=== PATIENT | female | born 1965 | race Caucasian/White ===

== ENCOUNTER 2017-03-23 02:55 | Inpatient (IN) | payer BC, OTHER ==
[2017-03-23 03:15] VITALS: BP 127/76
[2017-03-23] MEDS: LACTATED RINGERS 1,000 ML IV SCH ×3 (03:45→19:54)
[2017-03-23] MEDS: ONDANSETRON 4 MG/2 ML (SDV) Z0FRAN IVP PRN ×3 (03:46→17:42)
[2017-03-23] MEDS: fentaNYL INJECTION 100 MCG/2 ML AMP IVP PRN ×6 (03:46→21:52)
[2017-03-23 06:46] LABS: BASOPHILS % (AUTO) 0 % (0-10); EOSINOPHILS # (AUTO) 0.5 10^3/uL (0.0-0.3); EOSINOPHILS % (AUTO) 4 % (0-10); LYMPHOCYTES # (AUTO) 5.4 X 10^3 (1.0-4.0); LYMPHOCYTES % (AUTO) 35 % (12-44); MEAN CORPUSCULAR HEMOGLOBIN 27 PG (25-34); MEAN CORPUSCULAR HGB CONC 32 G/DL (32-36); MEAN CORPUSCULAR VOLUME 84 FL (80-99); MEAN PLATELET VOLUME 9.1 FL (7.4-10.4); MONOCYTES % (AUTO) 6 % (0-12); NEUTROPHILS # (AUTO) 8.4 X 10^3 (1.8-7.8); NEUTROPHILS % (AUTO) 55 % (42-75); PLATELET COUNT 302 10^3/uL (130-400); RED BLOOD COUNT 5.41 10^6/uL (4.35-5.85); WHITE BLOOD COUNT 15.3 10^3/uL (4.3-11.0)
[2017-03-23 07:06] LABS: ALANINE AMINOTRANSFERASE 24 U/L (0-55); ALBUMIN 3.4 GM/DL (3.2-4.5); ANION GAP 9 MMOL/L (5-14); ASPARTATE AMINO TRANSFERASE 13 U/L (5-34); BILIRUBIN,TOTAL 0.4 MG/DL (0.1-1.0); BLOOD UREA NITROGEN 11 MG/DL (7-18); BUN/CREATININE RATIO 16; CALCIUM 8.4 MG/DL (8.5-10.1); CARBON DIOXIDE 22 MMOL/L (21-32); CHLORIDE 109 MMOL/L (98-107); GFR ESTIMATED > 60; GLUCOSE 134 MG/DL (70-105); POTASSIUM 4.1 MMOL/L (3.6-5.0); SODIUM 140 MMOL/L (135-145); TOTAL PROTEIN 6.3 GM/DL (6.4-8.2)
[2017-03-23 07:25] LABS: ANISOCYTOSIS SLIGHT; BAND NEUTROPHILS 2 %; BASOPHILS % (MANUAL) 0 %; EOSINOPHILS % (MANUAL) 3 %; LYMPHOCYTES % (MANUAL) 37 %; NEUTROPHILS % (MANUAL) 53 %
[2017-03-23 08:00] VITALS: BP 113/67
--- NOTE | 2017-03-23 08:01 | History & Physicial ---
History of Present Illness History of Present Illness Reason for visit/HPI Increasing diarrhea, epigastric pain with abnormal thickening of the terminal ileum on a CT scan. This lady underwent laparoscopic cholecystectomy to address gallstones by Dr. Feng about 3 weeks ago. She reports severe diarrhea with epigastric pain, resulting in ER visit at [facility]. White cell count was slightly elevated. LFTs were normal. Thickening of the terminal ileum was reported on a CT scan obtained at [place] [facility]. At the patient's request, she has been transferred to our facility for continuity of care. Date of Admission Mar 23, 2017 at 2:55 am Date Seen by Provider: Mar 23, 2017 Time Seen by Provider: 07:20 I consulted on this patient on 03/23/17 07:55 Attending Physician Yvonne Alexander MD Admitting Physician Mitchell Hair DO Consult Allergies and Home Medications Allergies Coded Allergies: Penicillins (Verified Allergy, Unknown, 03/23/17) Sulfa (Sulfonamide Antibiotics) (Verified Allergy, Unknown, 03/23/17) erythromycin base (Verified Allergy, Unknown, 03/23/17) iodine (Verified Allergy, Unknown, 03/23/17) meperidine (Verified Allergy, Unknown, 03/23/17) Past Yckfqne-Icctoa-Fuhckl Hx Patient Social History Marrital Status: Employed/Student: employed Alcohol Use: Occasionally Uses Recreational Drug Use: No Smoking Status: Current Everyday Smoker Type Used: Cigarettes Physical Abuse Screen: No Sexual Abuse: No Recent Foreign Travel: No Contact w/other who traveled: No Seasonal Allergies Seasonal Allergies: No Surgeries Surgeries: Gallbladder Cardiovascular Hx Cardiovascular Disorders: No Neurological Hx Neurological Disorders: No Genitourinary Genitourinary Disorders: Kidney Stones, UTI-Chronic Gastrointestinal Hx Gastrointestinal Disorders: Yes Gastrointestinal Disorders: Chronic Diarrhea, Gall Bladder Disease Musculoskeletal Hx Musculoskeletal Disorders: No Endocrine Hx Endocrine Disorders: Yes Endocrine Disorders: Diabetes, Non-Insulin dep HEENT HX ENT Disorders: No Psychosocial Hx Psychiatric Problems: No Integumentary HX Skin/Integumentary Disorder: Yes Skin/Integumentary Disorders: Pruritis Blood Transfusions Adverse Reaction to a Blood Tr: No Constitutional: malaise, weakness EENTM: no symptoms reported Respiratory: no symptoms reported Cardiovascular: no symptoms reported Gastrointestinal: abdominal pain (RUQ), diarrhea Genitourinary: no symptoms reported : No Musculoskeletal: no symptoms reported Skin: pruritus Psychiatric/Neurological: No Symptoms Reported Physical Exam Vital Signs Vital Sign - Last 12Hours 03/23/17 03:15 Temp 98.2 Pulse 71 Resp 20 B/P (MAP) 127/76 Pulse Ox 96 O2 Delivery Room Air Capillary Refill : General Appearance: Anxious HEENT: Normal ENT Inspection Neck: Normal Inspection Respiratory: Lungs Clear Cardiovascular: Regular Rate, Rhythm Gastrointestinal: Tenderness Rectal: Deferred Extremity: Normal Inspection Neurologic/Psychiatric: Alert, Oriented x3 Skin: Rash Comments mild epigastric tenderness. Multiple rashes all over her body, precipitated by intense pruritus. Assessment/Plan Assessment and Plan Lady with postcholecystectomy diarrhea. Abnormal thickening of the terminal ileum on CT scan epigastric tenderness and nausea. Possibly gastritis. Initiated symptomatically management. Requested her primary surgeon to assume care and he has agreed. Problems: Clinical Quality Measures DVT/VTE Risk/Contraindication: Risk Factor Score Per Nursin RFS Level Per Nursing on Admit: 2=Moderate YVONNE ALEXANDER MD Mar 23, 2017 8:01 am
[2017-03-23] MEDS ORDERED: METH4TAB10 PO (08:08)
[2017-03-23] MEDS ORDERED: TR1C15 TOP (08:08)
[2017-03-23] MEDS ORDERED: CARI350T27 PO (08:08)
[2017-03-23] MEDS ORDERED: DOXE25CA46 PO (08:08)
[2017-03-23] MEDS ORDERED: LINA5TAB PO (08:08)
[2017-03-23] MEDS ORDERED: ALPR1TAB7 PO (08:08)
[2017-03-23] MEDS ORDERED: PRM50SU RC (08:08)
[2017-03-23] MEDS: diphenhydrAMINE 50 MG/ML INJ (BENADRYL) IVP PRN ×2 (08:23→21:52)
[2017-03-23] MEDS: PANTOPRAZOLE 40 MG/10 ML (PROTONIX) VIAL IV SCH (08:23)
[2017-03-23] MEDS: inSUlin (REGULAR) HUMAN 1 UNIT/0.01 ML (CHARGE PER UNIT) SC SCH ×3 (11:35→20:58)
[2017-03-23 12:00] VITALS: BP 97/61
--- NOTE | 2017-03-23 13:36 | Progress Note ---
Subjective Time Seen by Provider: 13:01 Subjective/Events-last exam Pt was doing ok after her surgery for appx 2 weeks, then started developing "hives". She was placed on medrol dose pack and her DM medication was stopped. Then suddenly on Wednesday developed midsternal pain, with nausea and vomiting. This got so bad that she went to the ER in [place]. CT done there showed thickened TI and labs showed elevated WBC and elevated lactic acid. Right now pt states she has no pain, but thinks it is because the Zofran took the pain away. She is hungry, which is an improvement because she couldn't eat before. She stated even with liquids it would cause the "burning" in midsternal area. Review of Systems General: No Chills, Night Sweats, Fatigue HEENT: Head Aches, No Sore Throat Pulmonary: No Dyspnea, No Cough Cardiovascular: No: Chest Pain, Palpitations Gastrointestinal: Abdominal Pain, Nausea, Vomiting Genitourinary: No Dysuria, No Frequency Objective Exam Vital Signs Date Time Temp Pulse Resp B/P (MAP) Pulse Ox O2 Delivery O2 Flow Rate FiO2 03/23/17 08:00 97.6 67 16 113/67 97 Room Air 03/23/17 04:54 97 Room Air 03/23/17 03:15 98.2 71 20 127/76 96 Room Air I & O 03/23/17 07:00 Output Total 75 ml Balance -75 ml Capillary Refill : General Appearance: WD/WN, Anxious HEENT: PERRL/EOMI, Pharynx Normal Neck: Normal Inspection Respiratory: Lungs Clear, No Accessory Muscle Use Cardiovascular: Regular Rate, Rhythm, No Murmur Gastrointestinal: no organomegaly, No distended, tenderness (mostly RLQ ), other (incisions are clean dry and intact) Extremity: Normal Inspection Neurologic/Psychiatric: Alert, Oriented x3 Skin: Rash Results Lab Laboratory Tests 03/23/17 06:35: White Blood Count 15.3H, Red Blood Count 5.41, Hemoglobin 14.4, Hematocrit 45, Mean Corpuscular Volume 84, Mean Corpuscular Hemoglobin 27, Mean Corpuscular Hemoglobin Concent 32, Red Cell Distribution Width 15.0H, Platelet Count 302, Mean Platelet Volume 9.1, Neutrophils (%) (Auto) 55, Lymphocytes (%) (Auto) 35, Monocytes (%) (Auto) 6, Eosinophils (%) (Auto) 4, Basophils (%) (Auto) 0, Neutrophils # (Auto) 8.4H, Lymphocytes # (Auto) 5.4H, Monocytes # (Auto) 1.0, Eosinophils # (Auto) 0.5H, Basophils # (Auto) 0.0, Neutrophils % (Manual) 53, Lymphocytes % (Manual) 37, Monocytes % (Manual) 5, Eosinophils % (Manual) 3, Basophils % (Manual) 0, Band Neutrophils 2, Anisocytosis SLIGHT, Sodium Level 140, Potassium Level 4.1, Chloride Level 109H, Carbon Dioxide Level 22, Anion Gap 9, Blood Urea Nitrogen 11, Creatinine 0.70, Estimat Glomerular Filtration Rate > 60, BUN/Creatinine Ratio 16, Glucose Level 134H, Calcium Level 8.4L, Total Bilirubin 0.4, Aspartate Amino Transf (AST/SGOT) 13, Alanine Aminotransferase (ALT/SGPT) 24, Alkaline Phosphatase 95, Total Protein 6.3L, Albumin 3.4 03/23/17 11:24: Glucometer 128H Assessment/Plan Assessment/Plan Assessment/Plan 1. Thickened TI on CT; probably a gastroenteritis, not due to her recent cholecystectomy. Will try clear liquids and crackers 2. Elevated WBC - unsure etiology, ?reactive from vomiting and pain, iram labs in am 3. Elevated lactic acid - will repeat labs, most likely elevated secondary to metformin, no report from radiologist about bowel 4. Pruritis with erythema and welts after itching, Consult Medicine for help regarding this. Pt on Benadryl and steroids Clinical Quality Measures DVT/VTE Risk/Contraindication: Risk Factor Score Per Nursin RFS Level Per Nursing on Admit: 2=Moderate ELIZABETH HOUSE DO Mar 23, 2017 13:36
[2017-03-23] MEDS ORDERED: hydrOXYzine (VISTARIL) 25 MG CAP PO PRN (13:45)
[2017-03-23] MEDS ORDERED: SCOPOLAMINE 1.5 MG (TRANSDERM-SCOP) PATCH TOP SCH (13:45)
[2017-03-23] MEDS: methylPREDNISolone 40 MG/ML (Solu-MEDROL) VIAL IV SCH ×2 (14:14→19:54)
[2017-03-23 15:53] VITALS: BP 113/69
[2017-03-23 19:07] VITALS: BP 99/63
[2017-03-23 23:55] VITALS: BP 100/57
[2017-03-24] MEDS: ONDANSETRON 4 MG/2 ML (SDV) Z0FRAN IVP PRN (00:23)
[2017-03-24] MEDS: fentaNYL INJECTION 100 MCG/2 ML AMP IVP PRN (00:26)
[2017-03-24] MEDS: methylPREDNISolone 40 MG/ML (Solu-MEDROL) VIAL IV SCH ×2 (01:59→09:08)
[2017-03-24] MEDS: LACTATED RINGERS 1,000 ML IV SCH (04:30)
[2017-03-24 05:27] LABS: BASOPHILS % (AUTO) 0 % (0-10); EOSINOPHILS % (AUTO) 0 % (0-10); LYMPHOCYTES # (AUTO) 1.5 X 10^3 (1.0-4.0); LYMPHOCYTES % (AUTO) 14 % (12-44); MEAN CORPUSCULAR HEMOGLOBIN 26 PG (25-34); MEAN CORPUSCULAR HGB CONC 32 G/DL (32-36); MEAN CORPUSCULAR VOLUME 84 FL (80-99); MEAN PLATELET VOLUME 9.8 FL (7.4-10.4); MONOCYTES # (AUTO) 0.3 X 10^3 (0.0-1.0); MONOCYTES % (AUTO) 2 % (0-12); NEUTROPHILS # (AUTO) 8.8 X 10^3 (1.8-7.8); NEUTROPHILS % (AUTO) 84 % (42-75); PLATELET COUNT 327 10^3/uL (130-400); RED BLOOD COUNT 5.41 10^6/uL (4.35-5.85); RED CELL DISTRIBUTION WIDTH 14.6 % (10.0-14.5); WHITE BLOOD COUNT 10.5 10^3/uL (4.3-11.0)
[2017-03-24] MEDS: inSUlin (REGULAR) HUMAN 1 UNIT/0.01 ML (CHARGE PER UNIT) SC SCH ×2 (05:31→11:33)
[2017-03-24 05:45] LABS: ALANINE AMINOTRANSFERASE 24 U/L (0-55); ALBUMIN 3.7 GM/DL (3.2-4.5); ANION GAP 12 MMOL/L (5-14); ASPARTATE AMINO TRANSFERASE 12 U/L (5-34); BILIRUBIN,TOTAL 0.3 MG/DL (0.1-1.0); BLOOD UREA NITROGEN 10 MG/DL (7-18); BUN/CREATININE RATIO 13; CALCIUM 9.1 MG/DL (8.5-10.1); CARBON DIOXIDE 23 MMOL/L (21-32); CHLORIDE 104 MMOL/L (98-107); CREATININE SERUM 0.77 MG/DL (0.60-1.30); GFR ESTIMATED > 60; GLUCOSE 209 MG/DL (70-105); POTASSIUM 4.1 MMOL/L (3.6-5.0); SODIUM 139 MMOL/L (135-145); TOTAL PROTEIN 6.9 GM/DL (6.4-8.2)
[2017-03-24 08:00] VITALS: BP 103/59
[2017-03-24] MEDS: PANTOPRAZOLE 40 MG/10 ML (PROTONIX) VIAL IV SCH (09:08)
[2017-03-24] MEDS ORDERED: glyBURIDE 2.5 MG (MICRONASE) TAB PO SCH (10:30)
--- NOTE | 2017-03-24 10:33 | Consultation-Hospitalist ---
HPI History of Present Illness: HPI/Chief Complaint CC: Hives, severe pain, and diarrhea HPI: This is a 52 [address] Hair who had Cholecystectomy on February 26, performed by Dr. Feng. Three weeks after surgery, pt experienced hives and received steroids from Dr. Hair in office last week. Pt checked into the ER for severe pain and diarrhea on Wednesday. nurses aide: Pt's daughter wheels her out to smoke even though she is told no to Have not seen Dr. Feng Medical Student Review: Pt confirms recent Cholecystectomy Pt states that her pain is okay. Fentanyl was stopped around 0100. Pt rates her pain at 2 Pt states that her hives have mostly cleared Pt denies nausea and vomiting Pt states that she is on a clear liquid diet but would like to advance Pt confirms still having some diarrhea Pt confirms smoking Pt has DM Patient Interview: Pt confirms gallbladder removal on February [address] Feng Pt states that the hives started about 3 weeks after surgery. Pt went to Dr. Leger office for them and was given steroids and Doxepin and taken off DM meds. On Wednesday pt became sick with pain and diarrhea. Pt went to ER and was started on Zofran and Fentanyl. Pt states that her lactic acid was at 3 so could not DC and was transferred here. IV steroids were discussed and this has helped Physical exam stable. Labs discussed. WBC normal, but sugars are high because of the meds she is on Pt denies seeing Dr. Feng today Steroids will be given upon DC to help to not have recurren or fdc hives. Pt states that she has had a family member and was wondering if stress caused the hivess Pt denies being insulin dependent Scribed by Kaelyn Gordon under the direct supervision of Dr. Schneider. Source: patient Date Seen 03/24/17 Attending Physician Jose Garcia MD PCP Mitchell Hair DO Referring Physician Date of Admission Mar 23, 2017 at 02:55 Home Medications & Allergies Home Medications Reviewed patient Home Medication Reconciliation Form Allergies Allergies Coded Allergies Penicillins (Verified Allergy, Unknown, 03/23/17) Sulfa (Sulfonamide Antibiotics) (Verified Allergy, Unknown, 03/23/17) erythromycin base (Verified Allergy, Unknown, 03/23/17) iodine (Verified Allergy, Unknown, 03/23/17) meperidine (Verified Allergy, Unknown, 03/23/17) Past Vrsiwme-Cfsxol-Pokmfo Hx Patient Social History Marrital Status: Employed/Student: employed Alcohol Use: Occasionally Uses Recreational Drug Use: No Smoking Status: Current Everyday Smoker Type Used: Cigarettes Physical Abuse Screen: No Sexual Abuse: No Recent Foreign Travel: No Contact w/other who traveled: No Seasonal Allergies Seasonal Allergies: No Surgeries HX Surgeries: Yes Surgeries: Gallbladder Respiratory Hx Respiratory Disorders: No Cardiovascular Hx Cardiovascular Disorders: No Neurological Hx Neurological Disorders: No Genitourinary Hx Genitourinary Disorders: Yes Genitourinary Disorders: Kidney Stones, UTI-Chronic Gastrointestinal Hx Gastrointestinal Disorders: Yes Gastrointestinal Disorders: Chronic Diarrhea, Gall Bladder Disease Musculoskeletal Hx Musculoskeletal Disorders: No Endocrine Hx Endocrine Disorders: Yes Endocrine Disorders: Diabetes, Non-Insulin dep HEENT HX ENT Disorders: No Psychosocial Hx Psychiatric Problems: No Integumentary HX Skin/Integumentary Disorder: Yes Skin/Integumentary Disorders: Pruritis Blood Transfusions Adverse Reaction to a Blood Tr: No Review of Systems Constitutional: see HPI, weakness EENTM: no symptoms reported Respiratory: no symptoms reported Cardiovascular: no symptoms reported Gastrointestinal: abdominal pain (LLQ), loss of appetite, nausea, vomiting Genitourinary: no symptoms reported Musculoskeletal: no symptoms reported Skin: see HPI, rash Psychiatric/Neurological: No Symptoms Reported All Other Systems Reviewed Negative Unless Noted: Yes Physical Exam Physical Exam Vital Signs Vital Sign - Last 12Hours 03/23/17 03:15 Temp 98.2 Pulse 71 Resp 20 B/P (MAP) 127/76 Pulse Ox 96 O2 Delivery Room Air Capillary Refill : General Appearance: No Apparent Distress, WD/WN Eyes: Bilateral Eye Normal Inspection, Bilateral Eye PERRL HEENT: PERRL/EOMI, Normal ENT Inspection, Pharynx Normal Neck: Full Range of Motion, Normal Inspection, Non Tender, Supple, Carotid Bruit Respiratory: Chest Non Tender, Lungs Clear, Normal Breath Sounds, No Accessory Muscle Use, No Respiratory Distress Cardiovascular: Regular Rate, Rhythm, No Edema, No Gallop, No JVD, No Murmur, Normal Peripheral Pulses Gastrointestinal: Normal Bowel Sounds, No Organomegaly, No Pulsatile Mass, Non Tender, Soft Back: Normal Inspection, No CVA Tenderness, No Vertebral Tenderness Extremity: Normal Capillary Refill, Normal Inspection, Normal Range of Motion, Non Tender, No Calf Tenderness, No Pedal Edema Neurologic/Psychiatric: Alert, Oriented x3, No Motor/Sensory Deficits, Normal Mood/Affect Skin: Normal Color, Warm/Dry, Rash (resolved urticaria) Lymphatic: No Adenopathy Results Results/Procedures Lab Laboratory Tests 03/23/17 06:35 03/24/17 04:54 Assessment/Plan Admission Diagnosis Assessment: Severe gastroenteritis causing severe dehydration with recurrent nausea and vomiting requiring IV fluids, antibiotics and scopolamine patch Severe and recurrent urticaria unresolved with steroid administration as outpatient from unknown source likely medication related Smoker Diabetes mellitus Assessment and Plan Plan: Confer with Dr. Feng Follow up with Dr. Hair Continue clear liquids until discussed with Dr. Fegn Reconcile home meds start OHA low dose to avoid insulin at DC but accommodate the high sugars from steroids at DC Zev Phillips. Clinical Quality Measures DVT/VTE Risk/Contraindication: Risk Factor Score Per Nursin RFS Level Per Nursing on Admit: 2=Moderate SHUKRI SCHNEIDER DO Mar 24, 2017 10:33
[2017-03-24] MEDS ORDERED: MONTELUKAST 10 MG (SINGULAIR) TAB PO SCH (10:45)
[2017-03-24] MEDS ORDERED: FAMOTIDINE 20 MG (PEPCID) TABLET PO SCH (10:45)
[2017-03-24] MEDS ORDERED: GLYB2.5T4 PO (10:50)
[2017-03-24] MEDS ORDERED: MONT10TA24 PO (10:50)
[2017-03-24] MEDS ORDERED: SCOP1PAT TOP (10:50)
[2017-03-24] MEDS ORDERED: PRED10TA22 PO (10:50)
[2017-03-24] MEDS ORDERED: FAMO20TA5 PO (10:50)
[2017-03-24] MEDS ORDERED: HYDR-3781 PO (10:50)
[2017-03-24] MEDS ORDERED: inSUlin ASPART (NovoLOG) 1 UNIT/0.01 ML (CHARGE PER UNIT) SC SCH (11:00)
--- NOTE | 2017-03-24 11:18 | Progress Note ---
Subjective Time Seen by Provider: 11:01 Subjective/Events-last exam Pt seen and examined, hungry and upset because chicken was "hard and dry". She also wants to go smoke, "haven't had nicotine in 3 days". She states pain is much better tolerating clears and crackers. She also thinks the hives/rash is better. Review of Systems General: No Chills, No Night Sweats HEENT: Head Aches, No Visual Changes Pulmonary: No Dyspnea, No Cough Cardiovascular: No: Chest Pain, Palpitations Gastrointestinal: Abdominal Pain (improved), No: Nausea, Vomiting Objective Exam Vital Signs Date Time Temp Pulse Resp B/P (MAP) Pulse Ox O2 Delivery O2 Flow Rate FiO2 03/24/17 09:20 Room Air 03/24/17 08:00 98.4 52 20 103/59 96 Room Air 03/23/17 23:55 96.0 69 20 100/57 91 Room Air 03/23/17 20:00 Room Air 03/23/17 19:07 97.3 52 16 99/63 96 03/23/17 15:53 97.2 55 14 113/69 97 03/23/17 12:00 97.7 55 20 97/61 94 Room Air I & O 03/24/17 07:00 Intake Total 4045 ml Output Total 700 ml Balance 3345 ml Capillary Refill : General Appearance: No Apparent Distress, WD/WN HEENT: PERRL/EOMI Neck: Carotid Bruit Respiratory: Chest Non Tender, Lungs Clear, Normal Breath Sounds, No Accessory Muscle Use, No Respiratory Distress Cardiovascular: Regular Rate, Rhythm, No Edema, No Gallop, No JVD, No Murmur, Normal Peripheral Pulses Gastrointestinal: no organomegaly, No distended, tenderness (mostly RLQ ), other (incisions are clean dry and intact) Extremity: Normal Capillary Refill, Normal Inspection, Normal Range of Motion, Non Tender, No Calf Tenderness, No Pedal Edema Neurologic/Psychiatric: Alert, Oriented x3, No Motor/Sensory Deficits, Normal Mood/Affect Skin: Normal Color, Warm/Dry, Rash (resolved urticaria) Results Lab Laboratory Tests 03/23/17 11:24: Glucometer 128H 03/23/17 13:45: Lactic Acid Level 1.29 03/23/17 16:16: Glucometer 174H 03/23/17 20:48: Glucometer 236H 03/24/17 04:53: Glucometer 187H 03/24/17 04:54: White Blood Count 10.5, Red Blood Count 5.41, Hemoglobin 14.3, Hematocrit 45, Mean Corpuscular Volume 84, Mean Corpuscular Hemoglobin 26, Mean Corpuscular Hemoglobin Concent 32, Red Cell Distribution Width 14.6H, Platelet Count 327, Mean Platelet Volume 9.8, Neutrophils (%) (Auto) 84H, Lymphocytes (%) (Auto) 14 , Monocytes (%) (Auto) 2, Eosinophils (%) (Auto) 0, Basophils (%) (Auto) 0, Neutrophils # (Auto) 8.8H, Lymphocytes # (Auto) 1.5, Monocytes # (Auto) 0.3, Eosinophils # (Auto) 0.0, Basophils # (Auto) 0.0, Sodium Level 139, Potassium Level 4.1, Chloride Level 104, Carbon Dioxide Level 23, Anion Gap 12, Blood Urea Nitrogen 10, Creatinine 0.77, Estimat Glomerular Filtration Rate > 60, BUN/ Creatinine Ratio 13, Glucose Level 209H, Calcium Level 9.1, Total Bilirubin 0.3 , Aspartate Amino Transf (AST/SGOT) 12, Alanine Aminotransferase (ALT/SGPT) 24, Alkaline Phosphatase 107, Total Protein 6.9, Albumin 3.7 Assessment/Plan Assessment/Plan Assessment/Plan 1. Thickened TI on CT; probably a gastroenteritis, not due to her recent cholecystectomy. 2. Elevated WBC - unsure etiology, ?reactive from vomiting and pain, normal today 3. Elevated lactic acid -normal today; most likely elevated secondary to metformin, no report from radiologist about bowel 4. Pruritis with erythema and welts after itching, will cont on Benadryl and steroids Clinical Quality Measures DVT/VTE Risk/Contraindication: Risk Factor Score Per Nursin RFS Level Per Nursing on Admit: 2=Moderate ELIZABETH HOUSE DO Mar 24, 2017 11:18
--- NOTE | 2017-03-24 11:22 | Discharge Inst-Surgical ---
Discharge Inst-Surgical Depart Medication/Instructions New, Converted or Re-Newed RX: Call to Patients Pharmacy Patient Instructions Follow up Appt: Make appointment for 1 week. Instructions: May shower in 24 hours, no tub bath or soaking. Use incentive spirometer at home as directed. No Smoking Skin/Wound Care: Watch rash and hives, follow up with primary care if it continues. Symptoms to Report: Appetite Changes, Extremity Discoloration, Numbness/Tingling, Swelling Increased , Bleeding Excessive, Eyesight Changes, Pain Increased, Urine Color Change, Constipation(Persistent), Fever over 101 degree F, Pain/Pressure in chest, Urinating Difficulty, Cough Up/Vomit Blood, Heart Beat Irreg/Pounding, Pain/ Pressure in jaw, Vaginal Bleeding Increase, Cramps in feet or legs, Lightheadedness, Pain/Pressure in shoulder, Diarrhea(Persistent), Memory Changes Suddenly, Questions/Concerns, Weight gain consecutive days, Dizziness/ Fainting, Nausea/Vomiting, Shortness of Breath, Weight gain over 2 pounds If questions or concerns contact your physician Or seek help at emergency department. Activity Activity as Tolerated: Yes Driving Instructions: You May Drive Diet Discharge Diet: ADA Diet Diet After 24 Hours: Clear Liquid if Nauseous If Any Problems/Questions/Issu: Contact Your Physician, Go to Emergency Room Skin/Wound Care Bathing Instructions: ELIZABETH Mcleod DO Mar 24, 2017 11:22
[2017-03-24 11:35] VITALS: BP 103/59
[2017-03-26] MEDS ORDERED: PATCH REMOVAL TP SCH (14:15)
== END 2017-03-24 11:35 | disposition home or self-care (01) | DRG 392 ==
LOC: 4TH 02:55
PROVIDERS: ADMIT Surgery; ATTEND Surgery
DX: K52.9 Noninfective gastroenteritis and colitis, unspecified (principal); E86.0 Dehydration; L50.9 Urticaria, unspecified; E11.9 Type 2 diabetes mellitus without complications; F17.210 Nicotine dependence, cigarettes, uncomplicated
CPT/HCPCS: 36415; 80053; 82962; 83605; 85007; 85025; 85027